=== PATIENT | male | born 1945 | race Caucasian/White ===

== ENCOUNTER → 2019-05-31 10:51 | Outpatient (CLI) | payer MEDICARE, SELFPAY ==
[2019-06-03 14:17] LABS: PSA Free % 26 % (calc) (> 25); PSA, Total 2.7 ng/mL (< 4.1)
== END ==
DX: R97.20 Elevated prostate specific antigen [PSA] (principal)
CPT/HCPCS: 36415; 84153; 84154

== ENCOUNTER → 2020-04-12 06:30 | Outpatient (CLI) | payer MEDICARE, SELFPAY ==
--- NOTE | 2020-04-12 | DI.MRI.S_ITS ---
PROCEDURE: MR LUMBAR SPINE WO CON INDICATIONS: LOW BACK PAIN TECHNIQUE: Noncontrast sagittal T1 spin echo and T2 fast echo, sagittal STIR, axial T1 and T2 fast spin echo through the lumbar spine. In cases with scoliosis, additional coronal T2 fast spin echo may be performed. COMPARISON: [facility] [place], CR, XR LUMBAR SPINE WITH OLBIQUES PLUS FLEXION EXTENSION, 04/10/2020, 9:46. FINDINGS: Image quality: Excellent. Alignment and Curvature: There is a transitional element at S1. Numbering system is as denoted on the montage panel. There is loss of normal lumbar lordosis. There is mild grade 1 anterolisthesis of L5 on S1. Bone Marrow: Marrow is of normal overall signal. No acute vertebral body compression fractures. Spinal Cord: Conus medullaris terminates at the lower L2 level. Visualized cord demonstrates normal signal and size. Paraspinous Soft Tissues: No paravertebral masses. L1-L2: Mild disc desiccation and diffuse disc bulge. Mild facet and ligamentum flavum hypertrophy. Mild canal stenosis. No foraminal stenosis. L2-L3: Mild disc desiccation and diffuse disc bulge. Mild facet and ligamentum flavum hypertrophy. Mild epidural lipomatosis. Mild canal stenosis. No foraminal stenosis. L3-L4: Mild disc desiccation and diffuse disc bulge. Mild facet and ligamentum flavum hypertrophy. Mild epidural lipomatosis. Mild canal stenosis. Mild bilateral foraminal stenosis. L4-L5: Mild disc desiccation and diffuse disc bulge with small superimposed broad-based right posterolateral protrusion. Mild facet and ligamentum flavum hypertrophy. Mild epidural lipomatosis. Mild canal stenosis. Mild right greater than left foraminal stenosis. L5-S1: Mild disc height loss and desiccation. Mild diffuse disc bulge with superimposed broad-based left far lateral disc extrusion. Mild facet and ligamentum flavum hypertrophy. Mild epidural lipomatosis. Mild canal stenosis. Severe left and mild right foraminal stenosis. Left L5 nerve root compression. S1-S2: Mild disc height loss and desiccation. Mild diffuse disc bulge. Mild bilateral facet hypertrophy. Mild canal stenosis. Mild bilateral foraminal stenosis. IMPRESSION: 1. Multilevel degenerative disc and facet disease, as well as ligamentum flavum hypertrophy and epidural lipomatosis. 2. Mild multilevel canal stenosis. 3. Multilevel foraminal stenosis, worst on the left at L5-S1 where there is associated intraforaminal nerve root compression. Recommend correlation with clinical symptoms to ascertain relevance of this finding. 4. Atypical numbering system as described above with a transitional S1 element. Recommend correlation with plain films as well as the montage panel of the current examination for numbering purposes prior to any lumbar spinal intervention. Dictated by: Dayo Colón M.D. on 04/12/2020 at 9:02 Approved by: Dayo Colón M.D. on 04/12/2020 at 9:07
== END ==
PROVIDERS: Referring Provider Physical Medicine & Rehabilitation Pain Medicine; Visit Provider Physical Medicine & Rehabilitation Pain Medicine
DX: M54.5 Low back pain (principal); M51.36 Other intervertebral disc degeneration, lumbar region; M51.37 Other intervertebral disc degeneration, lumbosacral region; M48.061 Spinal stenosis, lumbar region without neurogenic claudication; M48.07 Spinal stenosis, lumbosacral region; E88.2 Lipomatosis, not elsewhere classified
CPT/HCPCS: 72148

== ENCOUNTER → 2020-12-05 16:51 | Outpatient (CLI) | payer MEDICARE, SELFPAY ==
--- NOTE | 2020-12-05 | DI.MRI.S_ITS ---
PROCEDURE: MR CERVICAL SPINE WO CON INDICATIONS: Neck pain TECHNIQUE: Noncontrast sagittal T1 spin echo and T2 fast spin echo, sagittal STIR, foraminal oblique sagittal T2 fast spin echo, and axial gradient echo or T2 fast spin echo through the cervical spine. In this patient, coronal T2-weighted images were also performed. COMPARISON: None. FINDINGS: Image quality: Excellent. Alignment and Curvature: S-shaped scoliotic curvature is seen. Bone Marrow: Marrow demonstrates normal overall signal. Spinal Cord: Visualized spinal cord has normal size and signal. No cerebellar tonsillar herniation. Paraspinous Soft Tissues: No paravertebral masses. Prevertebral soft tissues are normal in thickness. C2-C3: The disc height is well-preserved. Loss of disc signal is seen at this level. Mild facet joint hypertrophy is seen. Moderate bilateral neural foraminal narrowing can be seen, left worse than right. No central canal narrowing is seen. C3-C4: Mild loss of disc height is seen. Loss of disc signal is seen. Moderate generalized disc osteophyte complex is seen. Moderate facet joint hypertrophy is seen. There is moderate to severe bilateral neural foraminal narrowing seen, right worse than left. Mild central canal narrowing is seen. C4-C5: Mild to moderate loss of disc height is seen. Loss of disc signal is seen. Moderate disc osteophyte complex is seen, which is eccentric to the right. There is moderate to severe right-sided and mild left-sided neural foraminal narrowing seen. There is moderate to severe right-sided and at least moderate left-sided neural foraminal narrowing seen. Moderate central canal narrowing is seen. There is associated mass effect upon the ventral spinal cord. C5-C6: At least moderate loss of disc height and disc signal can be seen. Moderate disc osteophyte complex is seen, which is eccentric to the right. Moderate to severe bilateral neural foraminal narrowing is seen at this level. There is at least moderate central canal narrowing. There is associated mass effect upon the ventral spinal cord. C6-C7: Moderate loss of disc height is seen. Loss of disc signal is seen. At least moderate disc osteophyte complex is seen, which is eccentric to the right side. There is moderate right-sided and mild left-sided facet hypertrophy seen at this level. There is moderate to severe right-sided and at least moderate left-sided neural foraminal narrowing seen. Moderate central canal narrowing is seen. There is associated mass effect upon the ventral spinal cord. C7-T1: Moderate loss of disc height is seen. Loss of disc signal is seen. At least moderate disc osteophyte complex is seen, which is eccentric to the right side. There is moderate to prominent right-sided and [id number] left-sided facet hypertrophy seen. There is moderate to severe right-sided and moderate left-sided neural foraminal narrowing seen. Mild to moderate central canal narrowing is seen. There is associated mass effect upon the ventral spinal cord. IMPRESSION: Multiple levels of relatively prominent cervical spine degenerative change are seen. Dictated by: Ian Nagy M.D. on 12/05/2020 at 16:47 Approved by: Ian Nagy M.D. on 12/05/2020 at 16:52
== END ==
PROVIDERS: PCP Family Medicine; Referring Provider Physical Medicine & Rehabilitation; Visit Provider Physical Medicine & Rehabilitation
DX: M47.812 Spondylosis without myelopathy or radiculopathy, cervical region (principal); M54.2 Cervicalgia
CPT/HCPCS: 72141

== ENCOUNTER → 2021-05-29 09:10 | Outpatient (CLI) | payer MEDICARE, SELFPAY ==
--- NOTE | 2021-05-29 | DI.MRI.S_ITS ---
PROCEDURE: MR THORACIC SPINE WO CON INDICATIONS: Other intervertebral disc displacement, thoracic r TECHNIQUE: Noncontrast sagittal T1 spine echo and T2 fast spin echo, sagittal STIR, axial T1 and T2 fast spin echo through the thoracic spine. COMPARISON: [facility], , MR CERVICAL SPINE WO CON, 12/05/2020, 17:08. FINDINGS: Image quality: Excellent. Alignment and Curvature: There is normal alignment of the thoracic spine vertebral bodies. There is mild convex right scoliosis of the upper thoracic spine. Bone Marrow: Benign, intraosseous hemangioma noted in the T6 vertebral body. No acute vertebral body compression fractures. Spinal Cord: Visualized spinal cord is normal in size and signal. Paraspinous Soft Tissues: No paravertebral masses. Miscellaneous: Loss of signal noted throughout the thoracic spine discs. Disc space height is normally preserved throughout the thoracic spine. Mild facet hypertrophy noted in the mid and lower thoracic spine. No central stenosis. No neural foraminal narrowing. No neural compression. IMPRESSION: 1. Mild multilevel degenerative disc disease. 2. Mild multilevel facet arthropathy. 3. No central canal narrowing. 4. No neural foraminal narrowing. 5. No neural compression. 6. Convex right upper thoracic spine scoliosis. Dictated by: Aspen Whitaker MD, PhD on 05/29/2021 at 14:18 Approved by: Aspen Whitaker MD, PhD on 05/29/2021 at 15:52
== END ==
PROVIDERS: PCP Family Medicine; Referring Provider Physical Medicine & Rehabilitation; Visit Provider Physical Medicine & Rehabilitation
DX: M51.24 Other intervertebral disc displacement, thoracic region (principal); M51.34 Other intervertebral disc degeneration, thoracic region; M47.814 Spondylosis without myelopathy or radiculopathy, thoracic region
CPT/HCPCS: 72146

== ENCOUNTER 2024-07-06 14:20 | Emergency (ER) | payer MEDICARE, SELFPAY ==
[2024-07-06 14:22] VITALS: BP 134/60; PULSE 64; RESP 16; TEMP 36.3; O2SAT 98; BMI 23.7
--- NOTE | 2024-07-06 15:02 | EKG_ITS ---
[address] [address] Test Date: 2024-07-06 Pat Name: Armen Willard Department: [facility] Room: Gender: Male Central Supply Aide: ARIANNE : 1945 Requested By: Order Number: [id number] Reading MD: Felix Salinas Measurements Intervals [place] Rate: 59 P: 0 WI: 186 QRS: 10 QRSD: 82 T: 29 QT: 424 QTc: 419 Interpretive Statements Sinus bradycardia with premature atrial complexes Possible Inferior infarct , age undetermined Electronically Signed On 07-07-2024 19:03:44 PST by Felix Salinas
[2024-07-06 15:15] VITALS: BP 141/72; PULSE 64; RESP 14; O2SAT 99
[2024-07-06 15:16] VITALS: BP 137/63; PULSE 64; RESP 14
== END 2024-07-06 15:40 | disposition left against medical advice (07) ==
PROVIDERS: Emergency Provider Emergency Medicine; PCP Family Medicine
DX: R00.1 Bradycardia, unspecified (principal); R55 Syncope and collapse; Z53.21 Procedure and treatment not carried out due to patient leaving prior to being seen by health care provider; N40.1 Benign prostatic hyperplasia with lower urinary tract symptoms; R97.20 Elevated prostate specific antigen [PSA]
CPT/HCPCS: 55700; 76942; 81002; 93005; 99214; 99281

== ENCOUNTER 2025-06-11 19:03 | Emergency (ER) | payer MEDICARE, SELFPAY ==
[2025-06-11 19:12] VITALS: BP 201/84; PULSE 79; RESP 14; TEMP 36.6; O2SAT 96; BMI 22.5
[2025-06-11] MEDS: LIDOCAINE 2% (GLYDO) 6 ML GEL TOP (20:01)
--- NOTE | 2025-06-11 20:56 | PC.NURSE ---
Ct Doll attempted 16 FR catheter and was unable to insert it due to resistance. I placed a 14fr coude catheter.
[2025-06-11 21:11] LABS: Bilirubin Urine UA NEGATIVE (NEGATIVE); Color Urine UA YELLOW; Glucose Urine UA NEGATIVE (Negative); Ketones Urine UA NEGATIVE (NEGATIVE); Leukocyte Esterase Urine UA 2+ (NEGATIVE); Nitrite Urine UA NEGATIVE (Negative); Occult Blood Urine UA 1+ (Negative); Protein Urine UA 2+ (Negative); Specific Gravity Urine UA 1.015 (1.000-1.035); Urobilinogen Urine UA 0.2 E.U./dL (0.2); pH Urine UA 6.0 (4.5-8.0)
[2025-06-11 21:14] LABS: Appearance Urine UA Slightly Cloudy
[2025-06-11 21:17] LABS: Culture Indicated Urine Specimen Cultured
--- NOTE | 2025-06-11 23:07 | ED.MALEGU ---
HPI - Male Genitourinary General Chief complaint: Urogenital-Male Stated complaint: needs catheters Time Seen by Provider: 06/11/25 22:07 Source: patient Mode of arrival: Ambulatory History of Present Illness HPI Narrative: 80-year-old male with a history of prostate cancer status post radiation presents with more retention of urine in the last few days that recently has gotten worse. He denies any other symptoms. Related Data Home Medications ?Medication ?Instructions ?Recorded ?Confirmed atorvastatin PO 07/13/19 07/06/24 lisinopril PO 07/13/19 07/06/24 cetirizine 10 mg capsule (Zyrtec) 10 mg PO DAILY PRN 06/22/24 07/06/24 cholecalciferol (vitamin D3) 10 10 mcg PO DAILY 06/22/24 07/06/24 mcg (400 unit) capsule melatonin 12 mg tablet 12 mg PO BEDTIME 06/22/24 07/06/24 multivitamin (Daily Multi-Vitamin 1 tab PO DAILY 06/22/24 07/06/24 tablet) phytonadione (vitamin K1) 5 mg 5 mg PO DAILY 06/22/24 07/06/24 tablet saw palmetto 500 mg capsule 1,000 mg PO BID 06/22/24 07/06/24 Previous Rx's ?Medication ?Instructions ?Recorded levofloxacin 500 mg tablet 500 mg PO DAILY #3 tabs 06/22/24 cephalexin 500 mg capsule 500 mg PO BID 7 days #14 caps 06/11/25 Allergies Allergy/AdvReac Type Severity Reaction Status Date / Time No Known Drug Allergies Allergy Verified 06/11/25 19:12 Review of Systems Review of Systems ROS Unobtainable: All systems reviewed & are unremarkable except as noted in HPI and below Patient History Medical History Hx of sciatica History of kidney stones History of BPH Surgical History Hx of prostate biopsy Family History Mother Cancer Father Hypertension Social History marital status: number of children: 2 Smoking Status: Unknown if ever smoked alcohol intake: former caffeine: Yes Type(s) of exercise: regular exercise frequency: 5-6 times per week duration: 45-60 minutes/day Smoking Status: Unknown if ever smoked Exam Narrative Exam Narrative: General: Patient appears to be in no acute distress, acting appropriately Head: normocephalic, atraumatic, HEENT: Pupils equal round reactive, eyes tracking well, neck supple, no JVD Heart: regular rate and rhythm, no murmurs, rubs, or gallops heard Lungs: clear to auscultation, no adventitious sounds Abdomen: soft , nontender, nondistended, positive bowel sounds Neurological: no focal neurological signs, moving all extremities well, alert and oriented x3, Psych: good judgment ,good insight, mood is normal. Initial Vital Signs Initial Vital Signs: Vital Signs Temperature 97.9 F 06/11/25 19:12 Pulse Rate 79 06/11/25 19:12 Respiratory Rate 14 06/11/25 19:12 Blood Pressure 201/84 H 06/11/25 19:12 Pulse Oximetry 96 06/11/25 19:12 Oxygen Delivery Method Room Air 06/11/25 19:12 Course Orders Ordered: ED Orders 06/11/25 21:02 Urinalysis and Microscopic Stat Urine Culture Stat Discontinued Medications Cefazolin Sodium (Cephalexin 250 Mg Cap Prepack) 1 bottle MISC DIRECTED ONE Stop: 06/11/25 23:07 Last Admin: 06/11/25 23:17 Dose: 500 mg Documented By: KERRY Lidocaine HCl (Lidocaine 2% (Glydo) 6 Ml Gel) 6 ml TOP NOW ONE Stop: 06/11/25 19:59 Last Admin: 06/11/25 20:01 Dose: 6 ml Documented By: KERRY Vital Signs Vital signs: Vital Signs - 8 hr 06/11/25 19:12 Temperature 97.9 F Pulse Rate 79 Respiratory Rate 14 Blood Pressure 201/84 H Pulse Oximetry 96 Oxygen Delivery Method Room Air MDM - Male Genitourinary Lab Data Labs: Lab Results 06/11/25 Range/Units 21:02 Urine Color Yellow Urine Appearance Slightly cloudy Urine pH 6.0 (4.5-8.0) Ur Specific [place] 1.015 (1.000-1.035) Urine Protein 2+ H (Negative) Urine Glucose (UA) Negative (Negative) g/dL Urine Ketones Negative (NEGATIVE) Urine Occult Blood 1+ H (Negative) Urine Nitrate Negative (Negative) Urine Bilirubin Negative (NEGATIVE) Urine Urobilinogen 0.2 (0.2) E.U./dL Ur Leukocyte Esterase 2+ H (NEGATIVE) Urine RBC 1-5/hpf (0-5/HPF) Urine WBC 30-100/hpf H (0-5/HPF) Ur Squamous Epith Cells None seen (0-5/HPF) Urine Bacteria Moderate (10-30) H (None) Ur Culture Indicated? Specimen cultured Vol Urine Centrifuged 10ml (spun) MDM Narrative Medical decision making narrative: 80-year-old male with acute urinary retention, history of prostate cancer and urinary tract infection that was just noticed today. Patient given a take-home antibiotic packet of cephalexin to start we will complete a one-week course. He has a Urology follow up next week and he will keep. A 16 [place] catheter was placed without difficulty by nursing staff which he will keep in until his urology appointment. Advised to come back if any new symptoms arise. Discharge Plan Departure Patient Disposition: Home Clinical Impression: Acute retention of urine Urinary tract infection Qualifiers: Urinary tract infection type: acute cystitis Hematuria presence: without hematuria Qualified Code(s): N30.00 - Acute cystitis without hematuria Instructions: DI for Urinary Tract Infection (UTI), DI for Urinary Retention in Men Activity Restrictions/Additional Instructions: Follow up with Urology as planned. Finish antibiotics as prescribed. Follow up sooner if having any new symptoms. Prescriptions: New cephalexin 500 mg capsule 500 mg PO BID 7 Days Qty: 14 0RF No Action lisinopril PO atorvastatin PO levofloxacin 500 mg tablet 500 mg PO DAILY Qty: 3 0RF Rx Instructions: Take one the day before the procedure, the day of, and the day after the procedure. saw palmetto 500 mg capsule 1,000 mg PO BID Rx Instructions: give with food (meal/snack) Zyrtec 10 mg capsule 10 mg PO DAILY PRN multivitamin [Daily Multi-Vitamin] Tablet 1 tab PO DAILY melatonin 12 mg tablet 12 mg PO BEDTIME cholecalciferol (vitamin D3) 10 mcg (400 unit) capsule 10 mcg PO DAILY phytonadione (vitamin K1) 5 mg tablet 5 mg PO DAILY Referrals: Everardo Parker MD [Primary Care Provider, Family Practice] Stand Alone Forms: Patient Portal/API
== END 2025-06-11 23:18 | disposition home or self-care (01) ==
PROVIDERS: Emergency Provider Family Medicine; PCP Family Medicine
DX: N30.00 Acute cystitis without hematuria (principal); Z85.46 Personal history of malignant neoplasm of prostate
CPT/HCPCS: 51702; 51798; 81001; 87077; 87086; 87186; 99283

== ENCOUNTER 2025-06-14 22:01 | Emergency (ER) | payer MEDICARE, SELFPAY ==
[2025-06-14 22:24] VITALS: BP 183/85; PULSE 65; RESP 18; TEMP 36.5; O2SAT 97; BMI 23.1
--- NOTE | 2025-06-25 18:14 | ED.MALEGU ---
HPI - Male Genitourinary General Chief complaint: Urogenital-Male Stated complaint: Removed catheter and is in pain Time Seen by Provider: 06/14/25 23:20 Source: patient Mode of arrival: Ambulatory Related Data Home Medications ?Medication ?Instructions ?Recorded ?Confirmed atorvastatin PO 07/13/19 07/06/24 lisinopril PO 07/13/19 07/06/24 cetirizine 10 mg capsule (Zyrtec) 10 mg PO DAILY PRN 06/22/24 07/06/24 cholecalciferol (vitamin D3) 10 10 mcg PO DAILY 06/22/24 07/06/24 mcg (400 unit) capsule melatonin 12 mg tablet 12 mg PO BEDTIME 06/22/24 07/06/24 multivitamin (Daily Multi-Vitamin 1 tab PO DAILY 06/22/24 07/06/24 tablet) phytonadione (vitamin K1) 5 mg 5 mg PO DAILY 06/22/24 07/06/24 tablet saw palmetto 500 mg capsule 1,000 mg PO BID 06/22/24 07/06/24 Previous Rx's ?Medication ?Instructions ?Recorded levofloxacin 500 mg tablet 500 mg PO DAILY #3 tabs 06/22/24 Allergies Allergy/AdvReac Type Severity Reaction Status Date / Time No Known Drug Allergies Allergy Verified 06/15/25 09:05 Patient History Medical History Hx of sciatica History of kidney stones History of BPH Surgical History Hx of prostate biopsy Family History Mother Cancer Father Hypertension Social History marital status: number of children: 2 Smoking Status: Unknown if ever smoked alcohol intake: former caffeine: Yes Type(s) of exercise: regular exercise frequency: 5-6 times per week duration: 45-60 minutes/day Smoking Status: Never smoker Exam Initial Vital Signs Initial Vital Signs: Vital Signs Temperature 97.7 F 06/14/25 22:24 Pulse Rate 65 06/14/25 22:24 Respiratory Rate 18 06/14/25 22:24 Blood Pressure 183/85 H 06/14/25 22:24 Pulse Oximetry 97 06/14/25 22:24 Oxygen Delivery Method Room Air 06/14/25 22:24 Discharge Plan Departure Patient Disposition: Left Without Being Seen Clinical Impression: Patient left without being seen Prescriptions: No Action lisinopril PO atorvastatin PO levofloxacin 500 mg tablet 500 mg PO DAILY Qty: 3 0RF Rx Instructions: Take one the day before the procedure, the day of, and the day after the procedure. miky palmetto 500 mg capsule 1,000 mg PO BID Rx Instructions: give with food (meal/snack) Zyrtec 10 mg capsule 10 mg PO DAILY PRN multivitamin [Daily Multi-Vitamin] Tablet 1 tab PO DAILY melatonin 12 mg tablet 12 mg PO BEDTIME cholecalciferol (vitamin D3) 10 mcg (400 unit) capsule 10 mcg PO DAILY phytonadione (vitamin K1) 5 mg tablet 5 mg PO DAILY
== END 2025-06-14 23:32 | disposition left against medical advice (07) ==
PROVIDERS: Emergency Provider Family Medicine; PCP Family Medicine
DX: R33.9 Retention of urine, unspecified (principal)
CPT/HCPCS: 51798; 99282

== ENCOUNTER 2025-06-15 08:51 | Emergency (ER) | payer MEDICARE, SELFPAY ==
[2025-06-15 08:53] VITALS: BP 183/86; PULSE 70; RESP 14; TEMP 36.1; O2SAT 99; BMI 22.5
[2025-06-15] MEDS: LIDOCAINE 2% (GLYDO) 6 ML GEL TOP (09:51)
--- NOTE | 2025-06-15 09:52 | ED.MALEGU ---
HPI - Male Genitourinary General Chief complaint: Urogenital-Male Stated complaint: Can't pee Time Seen by Provider: 06/15/25 08:57 Source: patient Mode of arrival: Ambulatory History of Present Illness HPI Narrative: Patient here for urinary retention. Patient is seen here 4 days ago for urinary retention and had Teixeira catheter placed. He decided to remove yesterday morning has had retention since then. Patient has history BPH/TURP/prostate cancer. He sees urology and oncology in [facility]. Bladder scan 50 mL. After insertion, patient had 500 mL in the bag. Patient is still on antibiotics from his visit here 4 days ago. Is on Keflex. Blood pressure noted. Patient feels he was anxious. Related Data Home Medications ?Medication ?Instructions ?Recorded ?Confirmed atorvastatin PO 07/13/19 07/06/24 lisinopril PO 07/13/19 07/06/24 cetirizine 10 mg capsule (Zyrtec) 10 mg PO DAILY PRN 06/22/24 07/06/24 cholecalciferol (vitamin D3) 10 10 mcg PO DAILY 06/22/24 07/06/24 mcg (400 unit) capsule melatonin 12 mg tablet 12 mg PO BEDTIME 06/22/24 07/06/24 multivitamin (Daily Multi-Vitamin 1 tab PO DAILY 06/22/24 07/06/24 tablet) phytonadione (vitamin K1) 5 mg 5 mg PO DAILY 06/22/24 07/06/24 tablet saw palmetto 500 mg capsule 1,000 mg PO BID 06/22/24 07/06/24 Previous Rx's ?Medication ?Instructions ?Recorded levofloxacin 500 mg tablet 500 mg PO DAILY #3 tabs 06/22/24 cephalexin 500 mg capsule 500 mg PO BID 7 days #14 caps 06/11/25 Allergies Allergy/AdvReac Type Severity Reaction Status Date / Time No Known Drug Allergies Allergy Verified 06/15/25 09:05 Review of Systems Review of Systems Narrative: GENERAL: Negative chills, fatigue, malaise, fever, sweats. HEENT: Negative sinus pain, ear pain, sore throat RESPIRATORY: Negative dyspnea, cough CARDIOVASCULAR: Negative chest pain, palpitations GASTROINTESTINAL: Negative vomiting, nausea, positive abdominal pain : Negative dysuria, frequency, hematuria MUSCULOSKELETAL: Negative muscle or bony pain SKIN: Negative rash, skin lesions NEUROLOGIC: Negative weakness, numbness ROS Unobtainable: All systems reviewed & are unremarkable except as noted in HPI and below Patient History Medical History Hx of sciatica History of kidney stones History of BPH Surgical History Hx of prostate biopsy Family History Mother Cancer Father Hypertension Social History marital status: number of children: 2 Smoking Status: Unknown if ever smoked alcohol intake: former caffeine: Yes Type(s) of exercise: regular exercise frequency: 5-6 times per week duration: 45-60 minutes/day Smoking Status: Unknown if ever smoked Exam Narrative Exam Narrative: GENERAL: in no distress, not toxic not dyspneic HEAD: Normocephalic. EYES: Pupils equal round ENT: Mucous membranes moist. GASTROINTESTINAL: Abdomen soft, non-tender, slight erythema at the meatus of the penis. Otherwise no lesions or rashes of the groin. BACK: No flank tenderness. NEURO: AOx4. Clear speech SKIN: Warm and dry PSYCH: Not anxious, is cooperative Initial Vital Signs Initial Vital Signs: Vital Signs Temperature 97.0 F L 06/15/25 08:53 Pulse Rate 70 06/15/25 08:53 Respiratory Rate 14 06/15/25 08:53 Blood Pressure 183/86 H 06/15/25 08:53 Pulse Oximetry 99 06/15/25 08:53 Oxygen Delivery Method Room Air 06/15/25 08:53 Course Orders Ordered: Discontinued Medications Lidocaine HCl (Lidocaine 2% (Glydo) 6 Ml Gel) 6 ml TOP NOW ONE Stop: 06/15/25 09:26 Last Admin: 06/15/25 09:51 Dose: 6 ml Documented By: JENNIFFER Vital Signs Vital signs: Vital Signs - 8 hr 06/15/25 08:53 06/15/25 10:20 Temperature 97.0 F L Pulse Rate 70 77 Respiratory Rate 14 16 Blood Pressure 183/86 H 146/67 H Pulse Oximetry 99 98 Oxygen Delivery Method Room Air Room Air MDM - Male Genitourinary MDM Narrative Medical decision making narrative: Patient here for urinary retention. Patient is seen here 4 days ago for urinary retention and had Teixeira catheter placed. He decided to remove yesterday morning has had retention since then. Patient has history BPH/TURP/prostate cancer. He sees urology and oncology in [facility]. Bladder scan 50 mL. After insertion, patient had 500 mL in the bag. Patient is still on antibiotics from his visit here 4 days ago. Is on Keflex. Blood pressure noted. Patient feels he was anxious MDM After history and exam, exam is reassuring. No blood work or imaging indicated this time. Patient already on Keflex. No recent illness. No fever chills. Differential considered: Includes but not limited to urinary retention Medical records reviewed: ER visit notes here 4 days ago. Re-evaluations: 10:00 a.m.. Patient feeling much better after Teixeira catheter insertion. He will follow up with his urologist, who will call today and not try to remove the catheter himself. Return precautions reviewed. He desires discharge home. Discussion: Appropriate for discharge home. Patient has established oncologist as well as urologist. Return precautions reviewed and he desires discharge home. He is comfortable for home care with his Teixeira catheter. Blood pressure improved at time of discharge. 146/67 Diagnosis: Urinary retention Discharge Plan Departure Patient Disposition: Home Clinical Impression: Acute retention of urine Instructions: How to Care for Your Teixeira Catheter -- Male, DI for Urinary Retention in Men Activity Restrictions/Additional Instructions: Please do not remove your Teixeira catheter until instructed by your urologist. Call your urologist office today for appointment time. Return if worse if any questions or concerns. Continue home medications. Prescriptions: No Action lisinopril PO atorvastatin PO levofloxacin 500 mg tablet 500 mg PO DAILY Qty: 3 0RF Rx Instructions: Take one the day before the procedure, the day of, and the day after the procedure. cephalexin 500 mg capsule 500 mg PO BID 7 Days Qty: 14 0RF saw palmetto 500 mg capsule 1,000 mg PO BID Rx Instructions: give with food (meal/snack) Zyrtec 10 mg capsule 10 mg PO DAILY PRN multivitamin [Daily Multi-Vitamin] Tablet 1 tab PO DAILY melatonin 12 mg tablet 12 mg PO BEDTIME cholecalciferol (vitamin D3) 10 mcg (400 unit) capsule 10 mcg PO DAILY phytonadione (vitamin K1) 5 mg tablet 5 mg PO DAILY Referrals: Everardo Parker MD [Primary Care Provider, Family Practice] Stand Alone Forms: Patient Portal/API
[2025-06-15 10:20] VITALS: BP 146/67; PULSE 77; RESP 16; O2SAT 98
== END 2025-06-15 10:23 | disposition home or self-care (01) ==
PROVIDERS: Emergency Provider Emergency Medicine; PCP Family Medicine
DX: R33.9 Retention of urine, unspecified (principal); Z85.46 Personal history of malignant neoplasm of prostate; Z87.438 Personal history of other diseases of male genital organs
CPT/HCPCS: 51702; 51798; 99283; 99284